=== PATIENT | male | born 1960 | race Caucasian/White ===

== ENCOUNTER 2019-02-14 11:02 | Emergency (ER) | payer OTHER ==
--- NOTE | 2019-02-14 11:10 | EDM.PDOC ---
ED HPI GENERAL MEDICAL PROBLEM - General Chief Complaint: Lower Extremity Injury/Pain Stated Complaint: SWELLING IN THE LEGS Time Seen by Provider: 02/14/19 11:10 Source of Information: Reports: Patient History Limitations: Reports: No Limitations - History of Present Illness INITIAL COMMENTS - FREE TEXT/NARRATIVE: HISTORY AND PHYSICAL: History of present illness: Patient is a 58-year-old male presents to the ED with complaint of lower extremity swelling. He states it has been swollen for the past month or two. He had called his doctor back home and was given lasix. He states he is taking this with little relief of symptoms. He states he is in the ED today because he is "sick of it and had the day off." He states he does get a cramping pain in his calves occasionally. He has not followed up with PCP in [place]. He reports a history of prostate cancer with prostatectomy and had undergone chemotherapy last year. He states he does occasionally have blood in his urine with clotting on and off. He denies dysuria, chest pain, shortness of breath, abdominal pain, fevers, chills, nausea, vomiting. Review of systems: As per history of present illness and below otherwise all systems reviewed and negative. Past medical history: As per history of present illness and as reviewed below otherwise noncontributory. Surgical history: As per history of present illness and as reviewed below otherwise noncontributory. Social history: No reported history of drug or alcohol abuse. Family history: As per history of present illness and as reviewed below otherwise noncontributory. Physical exam: General: Patient sitting comfortably in no acute distress and nontoxic appearing HEENT: Atraumatic, normocephalic, pupils reactive, negative for conjunctival pallor or scleral icterus, mucous membranes moist, throat clear, neck supple, nontender, trachea midline. No meningeal signs. Lungs: Clear to auscultation, breath sounds equal bilaterally, chest nontender. Heart: S1S2, regular, negative for clicks, rubs, or overt murmur. Abdomen: Soft, nondistended, nontender. Negative for masses or hepatosplenomegaly. Negative for costovertebral tenderness. No rigidity, rebound , guarding. Pelvis: Stable nontender. Genitourinary: Deferred. Rectal: Deferred. Extremities: 2+ pitting edema bilaterally. Atraumatic, negative for cords or calf pain. Neurovascular unremarkable. Neuro: Awake, alert, oriented. Cranial nerves II through XII unremarkable. Cerebellum unremarkable. Motor and sensory unremarkable throughout. Exam nonfocal. Notes: Patient was informed of metastasis to lungs which he states is new. He was given number to urology and advised to follow up with urology and oncology. Diagnostics: CBC, CMP, UA, EKG, CXR, venous doppler US bilateral LE Therapeutics: [] Prescriptions: Impression: Lower extremity edema, history of prostate cancer Definitive disposition and diagnosis as appropriate pending reevaluation and review of above. manda tristan leg Pain Score (Numeric/FACES): 7 - Related Data Allergies Allergy/AdvReac Type Severity Reaction Status Date / Time No Known Allergies Allergy Verified 02/14/19 11:19 Home Meds: Home Meds Dextroamphetamine/Amphetamine [Adderall] 30 mg PO DAILY 02/14/19 [History] Doxazosin Mesylate [Cardura] 8 mg PO DAILY 02/14/19 [History] Fluticasone/Salmeterol [Advair 250-50] 1 puff INH BID 02/14/19 [History] Furosemide [Lasix] 20 mg PO DAILY 02/14/19 [History] Losartan [Cozaar] 100 mg PO BID 02/14/19 [History] metFORMIN [Glucophage XR] 1,000 mg PO BID 02/14/19 [History] Review of Systems - Review of Systems Review Of Systems: ROS reveals no pertinent complaints other than HPI. ED EXAM, GENERAL - Physical Exam Exam: See Below (see dictation) Course - Vital Signs Last Recorded V/S: Last Vital Signs Temp 97.0 F 02/14/19 11:10 Pulse 68 02/14/19 11:10 Resp 18 02/14/19 11:10 BP 188/86 H 02/14/19 11:10 Pulse Ox 96 02/14/19 11:10 - Orders/Labs/Meds Orders: Active Orders 24 hr Category Date Time Status EKG Documentation Completion [RC] STAT Care 02/14/19 11:18 Active Labs: Laboratory Tests 02/14/19 02/14/19 02/14/19 Range/Units 11:31 11:31 13:19 WBC 3.08 L (4.0-11.0) K/uL RBC 4.05 L (4.50-5.90) M/uL Hgb 11.3 L (13.0-17.0) g/dL Hct 35.7 L (38.0-50.0) % MCV 88.1 (80.0-98.0) fL MCH 27.9 (27.0-32.0) pg MCHC 31.7 (31.0-37.0) g/dL RDW Std Deviation 53.6 (28.0-62.0) fl RDW Coeff of Sofiya 17 H (11.0-15.0) % Plt Count 177 (150-400) K/uL MPV 8.40 (7.40-12.00) fL Neut % (Auto) 67.3 (48.0-80.0) % Lymph % (Auto) 17.2 (16.0-40.0) % Carbon % (Auto) 9.7 (0.0-15.0) % Eos % (Auto) 5.5 (0.0-7.0) % Baso % (Auto) 0.3 (0.0-1.5) % Neut # (Auto) 2.1 (1.4-5.7) K/uL Lymph # (Auto) 0.5 L (0.6-2.4) K/uL Carbon # (Auto) 0.3 (0.0-0.8) K/uL Eos # (Auto) 0.2 (0.0-0.7) K/uL Baso # (Auto) 0.0 (0.0-0.1) K/uL Nucleated RBC % 0.0 /100WBC Nucleated RBCs # 0 K/uL Sodium 147 (136-148) mmol/L Potassium 3.5 (3.5-5.1) mmol/L Chloride 109 H (98-107) mmol/L Carbon Dioxide 29.3 (21.0-32.0) mmol/L BUN 22 H (7.0-18.0) mg/dL Creatinine 1.1 (0.8-1.3) mg/dL Est Cr Clr Drug Dosing 77.01 mL/min Estimated GFR (MDRD) > 60.0 ml/min Glucose 114 H (74-106) mg/dL Calcium 8.9 (8.5-10.1) mg/dL Total Bilirubin 0.4 (0.2-1.0) mg/dL AST 22 (15-37) IU/L ALT 25 (14-63) IU/L Alkaline Phosphatase 48 (46-116) U/L Total Protein 6.1 L (6.4-8.2) g/dL Albumin 3.3 L (3.4-5.0) g/dL Globulin 2.8 (2.6-4.0) g/dL Albumin/Globulin Ratio 1.2 (0.9-1.6) Urine Color YELLOW Urine Appearance CLEAR Urine pH 6.0 (5.0-8.0) Ur Specific [place] 1.020 (1.001-1.035) Urine Protein NEGATIVE (NEGATIVE) mg/dL Urine Glucose (UA) NEGATIVE (NEGATIVE) mg/dL Urine Ketones NEGATIVE (NEGATIVE) mg/dL Urine Occult Blood NEGATIVE (NEGATIVE) Urine Nitrite NEGATIVE (NEGATIVE) Urine Bilirubin NEGATIVE (NEGATIVE) Urine Urobilinogen 0.2 (<2.0) EU/dL Ur Leukocyte Esterase NEGATIVE (NEGATIVE) Departure - Departure Time of Disposition: 14:09 Disposition: Home, Self-Care 01 Condition: Good Clinical Impression: Bilateral edema of lower extremity - Discharge Information Referrals: PCP,Not In Area [Primary Care Provider] - Forms: ED Department Discharge Additional Instructions: The following information is given to patients seen in the emergency department who are being discharged to home. This information is to outline your options for follow-up care. We provide all patients seen in our emergency department with a follow-up referral. The need for follow-up, as well as the timing and circumstances, are variable depending upon the specifics of your emergency department visit. If you don't have a primary care physician on staff, we will provide you with a referral. We always advise you to contact your personal physician following an emergency department visit to inform them of the circumstance of the visit and for follow-up with them and/or the need for any referrals to a consulting specialist. The emergency department will also refer you to a specialist when appropriate. This referral assures that you have the opportunity for follow-up care with a specialist. All of these measure are taken in an effort to provide you with optimal care, which includes your follow-up. Under all circumstances we always encourage you to contact your private physician who remains a resource for coordinating your care. When calling for follow-up care, please make the office aware that this follow-up is from your recent emergency room visit. If for any reason you are refused follow-up, please contact the [facility] Emergency Department at and asked to speak to the emergency department charge nurse. [facility] Primary Care [address] [place] [id number] [facility] Specialty Care - Urology [address] [place] [id number] Continue lasix as instructed Follow up with urology and primary care provider Return to ED as needed as discussed - My Orders Last 24 Hours: My Active Orders 02/14/19 11:18 EKG Documentation Completion [RC] STAT - Assessment/Plan Last 24 Hours: My Active Orders 02/14/19 11:18 EKG Documentation Completion [RC] STAT
[2019-02-14 12:00] LABS: BLOOD UREA NITROGEN,BUN 22 mg/dL (7.0-18.0); CARBON DIOXIDE,CO2 29.3 mmol/L (21.0-32.0); CHLORIDE,CL 109 mmol/L (98-107); GLUCOSE RANDOM 114 mg/dL (74-106); POTASSIUM,K 3.5 mmol/L (3.5-5.1); SODIUM,NA 147 mmol/L (136-148)
--- NOTE | 2019-02-14 12:33 | CR ---
HISTORY: Pain. Bilateral leg swelling. COMPARISON: None available FINDINGS: A portable erect AP view of the chest was obtained at 1142 hours. There is extensive sclerotic metastasis, with numerous sclerotic nodules scattered throughout the shoulders, clavicles, and ribs. Findings suggest extensive prostate or possibly lung metastasis. The lungs are clear. No focal or diffuse infiltrates are present. I do not see any pulmonary nodules to suggest a pulmonary malignancy. There is a small calcified granuloma in the right superior perihilar region, not suggestive of malignancy. The heart is normal in size. The mediastinum is normal in appearance. No fractures of the osseous structures are seen. IMPRESSION: Extensive nodular sclerotic osseous metastases, suggest prostate or lung cancer. No definite pulmonary nodule seen to suggest a primary lung cancer. Small calcified granuloma in the right superior perihilar lung. The lungs otherwise appear clear. Dictated by Kodak Norwood MD @ Feb 14 2019 12:28PM Signed by Dr. Kodak Norwood @ Feb 14 2019 12:31PM
--- NOTE | 2019-02-14 13:53 | US ---
INDICATION: Lower leg swelling x1 month. Hematuria. COMPARISON: None available TECHNIQUE: A duplex venous ultrasound exam was performed of both lower extremities using rodriguez scale imaging, color Doppler and spectral Doppler analysis. Pre- and post compression images were obtained per site specific protocol. FINDINGS: Sonographic imaging of the lower extremities demonstrates normal compressibility and color Doppler venous blood flow within the common femoral, proximal deep femoral, and proximal greater saphenous veins. Within the thighs the femoral veins are patent and compressible. At a lower level the popliteal, posterior tibial and visualized peroneal veins also show normal compressibility and color Doppler venous blood flow. Subcutaneous edema is seen in the calf in bilateral lower extremities. IMPRESSION: No evidence of deep vein thrombosis within either the left or right lower extremity. Dictated by James Rosales MD @ Feb 14 2019 1:49PM (Electronically Signed)
== END 2019-02-14 14:19 | disposition home or self-care (01) ==
LOC: MW.ED 11:02
DX: R60.0 Localized edema (principal); Z85.46 Personal history of malignant neoplasm of prostate; Z90.79 Acquired absence of other genital organ(s)
CPT/HCPCS: 36415; 71045; 71045-26; 80053; 81003; 85025; 93005; 93970; 93970-26; 99283; 99284-25

== ENCOUNTER 2019-07-05 16:35 | Emergency (ER) | payer OTHER ==
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
--- NOTE | 2019-07-05 17:54 | CR ---
Chest: 2 views of the chest were obtained. Comparison: No prior chest x-ray, previous chest CT of 05/05/19. Heart size and mediastinum are within normal limits. Lung markings mildly increased possibly due to bronchitis. No alveolar type densities are seen. Bony structures are slightly sclerotic suggesting osteoblastic change. Impression: 1. Possible bronchitis. 2. Osteosclerotic bones suggesting osteoblastic metastasis. Diagnostic code #9 Study was dictated in MDT
--- NOTE | 2019-07-05 17:54 | CR ---
Right ankle: 3 views of the right ankle were obtained. Comparison: No previous studies available. Ankle mortise is symmetric. No fracture or dislocation is seen. Spur is noted off the calcaneus at the attachment of the Achilles tendon. Impression: 1. Calcaneal spur. 2. Nothing acute is seen on right ankle study. Diagnostic code #2 Study was dictated in MDT
[2019-07-05] MEDS ORDERED: Acetaminophen/HYDROcodone 325-5 MG Tab PO ONE (18:19)
--- NOTE | 2019-07-05 18:50 | CR ---
Pelvis: AP view of the pelvis was obtained as well as AP view of the proximal femur. Scattered sclerotic areas within the pelvis and hips are seen compatible with osteoblastic metastasis. Mild to moderate joint space narrowing is seen within the right hip. No discrete fracture or other abnormality is seen. Impression: 1. Osteoblastic metastasis. 2. Mild to moderate joint space narrowing superiorly within the right hip. 3. Nothing acute is seen. Diagnostic code #9 Study was dictated in MDT
== END 2019-07-05 18:49 | disposition home or self-care (01) ==
LOC: MW.ED 16:35
DX: S93.401A Sprain of unspecified ligament of right ankle, initial encounter (principal); S20.211A Contusion of right front wall of thorax, initial encounter; S20.212A Contusion of left front wall of thorax, initial encounter; J45.909 Unspecified asthma, uncomplicated; Z79.899 Other long term (current) drug therapy; V29.9XXA Motorcycle rider (driver) (passenger) injured in unspecified traffic accident, initial encounter
CPT/HCPCS: 71046; 72170; 73610; 99283; A9270